=== PATIENT | male | born 1960 | race Hispanic/Latino ===

== ENCOUNTER → 2018-11-15 | Outpatient (CLI) | payer OTHER | END | disposition home or self-care (01) | LOC: RAH 15:27 | PROVIDERS: ATTEND Orthopaedic Surgery | DX: S83.281A Other tear of lateral meniscus, current injury, right knee, initial encounter (principal); S83.241A Other tear of medial meniscus, current injury, right knee, initial encounter; M95.8 Other specified acquired deformities of musculoskeletal system; X58.XXXA Exposure to other specified factors, initial encounter; Y93.89 Activity, other specified; Y92.89 Other specified places as the place of occurrence of the external cause; Y99.8 Other external cause status | CPT/HCPCS: 73721 ==